=== PATIENT | female | born 1985 | race Caucasian/White ===

== ENCOUNTER 2019-06-28 13:17 | Emergency (ER) | payer OTHER ==
[2019-06-28 13:23] VITALS: BP 131/77
[2019-06-28] MEDS ORDERED: DEXAMETHASONE 10 MG/ML VIAL PO STA (13:56)
[2019-06-28] MEDS ORDERED: CHERRY SYRUP 10 ML UDC PO ONE (13:56)
--- NOTE | 2019-06-28 13:59 | ED Physician Documentation ---
PD HPI HEENT - Stated complaint Stated Complaint: LT EAR PX - Chief complaint Chief Complaint: Heent - History obtained from History obtained from: Patient - History of Present Illness Timing - onset: How many weeks ago (1) Timing - duration: Weeks (1) Timing - details: Gradual onset, Still present, Waxing and waning Location: Left ear Improves: Medication Worsens: Swalllowing Associated symptoms: No: Fever, Congestion, Rhinorrhea, Trismus, Unable to swallow, Swollen nodes, Facial swelling, Headache, Cough Similar symptoms before: Diagnosis (swimmers ear) Recently seen: Not recently seen - Additional information Additional information: Previously well 33-year-old female has developed some cracking and popping in her left ear. She is a swimmer and she has been swimming regularly and she felt that she had some external ear canal infection and she put some isopropyl alcohol and vinegar in it and this did not resolve her symptoms of popping and in her ear, especially if she opens her mouth or yawns. She has not had a cough she has not had fever. She does complain of some vaginal itching she has had yeast vaginitis previously. She has treated for this previously with Monistat has had partial resolution. Review of Systems Constitutional: denies: Fever Eyes: denies: Decreased vision Ears: reports: Ear pain, Tinnitus/ringing Nose: denies: Rhinorrhea / runny nose, Congestion Throat: denies: Sore throat Cardiac: denies: Chest pain / pressure Respiratory: denies: Dyspnea, Cough GI: denies: Vomiting PD PAST MEDICAL HISTORY - Past Medical History : Kidney stones - Past Surgical History Past Surgical History: Yes General: Cholecystectomy HEENT: Tonsil/Adenoidectomy - Present Medications Home Medications: Ambulatory Orders Medication Instructions Recorded Confirmed Etonogestrel/Ethinyl Estradiol 1 each VG 06/28/19 06/28/19 [Nuvaring Vaginal Ring] Fluconazole [Diflucan] 150 mg PO ONCE #1 tablet 06/28/19 Valacyclovir HCl [Valtrex] 1,000 mg PO DAILY 06/28/19 06/28/19 - Allergies Allergies/Adverse Reactions: Allergies Allergy/AdvReac Type Severity Reaction Status Date / Time No Known Drug Allergies Allergy Verified 06/28/19 13:23 - Social History Does the pt smoke?: No Smoking Status: Never smoker Does the pt drink ETOH?: Yes Does the pt have substance abuse?: No PD ED PE NORMAL - Vitals Vital signs reviewed: Yes (hypertensive mild ) - General General: Alert and oriented X 3, No acute distress, Well developed/nourished - HEENT HEENT: Atraumatic, PERRL, EOMI, Ears normal, Moist mucous membranes, Other (There is no inflamation to the canal or the TM and there is no pain to pull on the tragus or push on the pinna. There is inflamation in a line along the left tonsilar base. 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, No motor deficit, No sensory deficit, Normal speech Eye Opening: Spontaneous Motor: Obeys Commands Verbal: Oriented GCS Score: 15 - Psych Psych: Normal mood, Normal affect Results - Vitals Vitals: Vital Signs - 24 hr 06/28/19 13:21 Temperature 36.3 C L Heart Rate 82 Respiratory 18 Rate Blood Pressure 131/77 H O2 Saturation 99 Oxygen O2 Source Room air PD MEDICAL DECISION MAKING - ED course Complexity details: reviewed old records, considered differential, d/w patient ED course: 33-year-old female with popping in her ear has not been able to get relief of it she feels like there is still water in the ear and clearly there is no water in the canal and no evidence of inflammation or swimmer's ear. She does have eustachian tube dysfunction and I have discussed with the patient methods of treating it including using nasa jeromy available [id number] and we will provide a single dose of dexamethasone here today. She does complain of some yeast vaginitis incompletely treated with the Monistat and we will provide a prescription for Diflucan. Departure - Departure Disposition: 01 Home, Self Care Clinical Impression: Yeast vaginitis Eustachian tube disorder Qualifiers: Laterality: left Qualified Code(s): H69.92 - Unspecified Eustachian tube disorder, left ear Condition: Stable Instructions: ED Obstruction Eustachian Tube Ch, ED Vaginal Infec Fungal Lauren Follow-Up: DINA TIRADO DO [Primary Care Provider] - Prescriptions: Fluconazole [Diflucan] 150 mg PO ONCE #1 tablet
== END 2019-06-28 14:07 | disposition home or self-care (01) ==
LOC: ED 13:17
DX: H69.92 Unspecified Eustachian tube disorder, left ear (principal); B37.3 Candidiasis of vulva and vagina
CPT/HCPCS: 99282; 99284; A9270

== ENCOUNTER 2020-05-27 07:12 | Outpatient (CLI) | payer OTHER ==
[2020-05-27] MEDS ORDERED: GADOBUTROL 7.5 MMOL/7.5 ML VIAL ONE (07:51)
[2020-05-27] MEDS ORDERED: GADOBUTROL 7.5 MMOL/7.5 ML VIAL IVP ONE (09:05)
--- NOTE | 2020-05-27 09:59 | MRI Report ---
PROCEDURE: Brain W/WO INDICATIONS: PARESTHESIA OF SKIN CONTRAST: IV CONTRAST: Gadavist ml: 6 TECHNIQUE: Noncontrast axial T1 spin echo, axial T2 fast spin echo, sagittal and axial FLAIR, coronal T2 fast sp in echo, axial gradient echo, axial diffusion and ADC through the brain. After the administration of contrast, axial and coronal T1 spin echo with fat saturation through the brain. COMPARISON: None. FINDINGS: Image quality: Excellent. CSF spaces: Normal ventricular caliber and position. Patent basilar cisterns. No abnormal intra-axial fluid collection. Brain: No restricted diffusion to indicate recent ischemia. The major intracranial vascular flow-rel ated signal voids are maintained. No abnormal intracranial susceptibility. No brain parenchymal FLAIR signal abnormality. No abnormal intracranial enhancement. Midline structures are normal in configura tion. Skull and face: Calvarial marrow is normal in signal. Orbits appear normal. Sinuses: Sinuses and mastoids appear clear. IMPRESSION: Normal MRI of the brain. No findings of demyelinating disorder or other abnormality to e xplain the patient's symptoms. Reviewed by: Kwesi Phan MD on 05/27/2020 9:58 AM PST Approved by: Kwesi Phan MD on 05/27/2020 9:58 AM PST Station ID: [id number]
--- NOTE | 2020-05-27 10:01 | MRI Report ---
PROCEDURE: Cervical Spine W/WO INDICATIONS: PARESTHESIA OF SKIN CONTRAST: IV CONTRAST: Gadavist ml: 6 TECHNIQUE: Noncontrast sagittal T1 spin echo and T2 fast spin echo, sagittal STIR, sagittal PD fast spin echo, f oraminal oblique sagittal T2 fast spin echo, axial gradient echo or T2 fast spin echo through the cer vical spine. After the administration of contrast, sagittal and axial T1 spin echo with fat saturati on through the cervical spine. COMPARISON: None. FINDINGS: Image quality: Excellent. Alignment and curvature: Normal configuration of the craniocervical junction. Normal cervical spine v ertebral body height and alignment. Marrow: Marrow demonstrates normal overall signal. Spinal cord: Normal morphology and signal intensity of the cervical cord. There is no syrinx. No abno rmal cord parenchymal or intradural enhancement. No inferior cerebellar tonsillar ectopia. No spinal canal or neural foraminal stenosis at any level in the cervical spine. Regional soft tissues: Prevertebral and paraspinous soft tissues are within normal limits. IMPRESSION: Normal MRI of the cervical spine. No findings of demyelinating disorder. Reviewed by: Kwesi Phan MD on 05/27/2020 10:00 AM PST Approved by: Kwesi Phan MD on 05/27/2020 10:00 AM PST Station ID: [id number]
== END 2020-05-27 07:13 | disposition home or self-care (01) ==
LOC: DI 07:12
PROVIDERS: ATTEND Nurse Practitioner Family
DX: R20.2 Paresthesia of skin (principal)
CPT/HCPCS: 70553; 72156; A9585

== ENCOUNTER 2020-05-31 14:38 | Emergency (ER) | payer OTHER ==
--- NOTE | 2020-05-31 15:35 | ED Physician Documentation ---
History of Present Illness - Stated complaint Stated Complaint: COLD & NUMB ON RIGHT SIDE OF BODY - Chief complaint Chief Complaint: Neuro - History obtained from History obtained from: Patient - History of Present Illness Timing: How many weeks ago (3) Pain level max: 0 Pain level now: 0 - Additonal information Additional information: 34 year old female states R sided body numbness for the past 3 weeks. Patient states that it started in the right hand and has since spread up her arm to the back of her head and down to her right foot. It encompasses the entire right side of the body except the face. Does not have any issues with muscular weakness. No recent illnesses or travel. Had a normal brain MRI and cervical spine MRI 4 days ago. Has an appointment with her PCP in 2 days. She states that occasionally her right eye feels "sluggish". No fevers. No chills. No possibility of . She does take Valtrex. She is on NuvaRing for control. No neck or back pain. Does not use any IV drugs. Has had no loss of bowel or bladder control. Review of Systems Ten Systems: 10 systems reviewed and negative Constitutional: denies: Fever, Chills Ears: denies: Ear pain Nose: denies: Rhinorrhea / runny nose, Congestion Throat: denies: Sore throat Respiratory: denies: Cough GI: denies: Vomiting : denies: Dysuria, Hesitancy, Incontinent, Now EGA Skin: denies: Rash Musculoskeletal: denies: Neck pain, Back pain Neurologic: denies: Generalized weakness, Focal weakness, Confused, Altered mental status, Headache PD PAST MEDICAL HISTORY - Past Medical History Past Medical History: Yes : Kidney stones - Past Surgical History Past Surgical History: Yes General: Cholecystectomy HEENT: Tonsil/Adenoidectomy - Present Medications Home Medications: Ambulatory Orders Medication Instructions Recorded Confirmed Etonogestrel/Ethinyl Estradiol 1 each VG UD 06/28/19 05/31/20 [Nuvaring Vaginal Ring] Valacyclovir HCl [Valtrex] 1,000 mg PO DAILY 06/28/19 05/31/20 - Allergies Allergies/Adverse Reactions: Allergies Allergy/AdvReac Type Severity Reaction Status Date / Time No Known Drug Allergies Allergy Verified 05/31/20 15:09 - Social History Does the pt smoke?: No Smoking Status: Never smoker Does the pt drink ETOH?: Yes Does the pt have substance abuse?: No - POLST Patient has POLST: No PD ED PE NORMAL - Vitals Vital signs reviewed: Yes - General General: Alert and oriented X 3, No acute distress, Well developed/nourished - HEENT HEENT: PERRL, Moist mucous membranes - Neck Neck: Supple, no meningeal sign - Cardiac Cardiac: RRR, Strong equal pulses - Respiratory Respiratory: No respiratory distress, Clear bilaterally - Abdomen Abdomen: Soft, Non tender, Non distended - Derm Derm: Warm and dry - Neuro Neuro: Alert and oriented X 3, No motor deficit, Other (Diminished sensation over the R UE, R torso and R LE. O/w normal neuro exam. normal DTR patellar, ankle, bicep, tricep. No saddle anesthesia. ) - Psych Psych: Normal mood, Normal affect Results - Vitals Vitals: Vital Signs - 24 hr 05/31/20 05/31/20 14:58 16:43 Temperature 37.3 C 37.2 C Heart Rate 85 88 Respiratory 18 16 Rate Blood Pressure 139/92 H 128/88 H O2 Saturation 100 100 Oxygen O2 Source Room air - Labs Labs: Laboratory Tests 05/31/20 05/31/20 05/31/20 15:44 15:51 15:51 WBC 7.7 RBC 4.66 Hgb 14.6 Hct 43.4 MCV 93.1 MCH 31.3 H MCHC 33.6 RDW 13.0 Plt Count 234 MPV 10.0 Neut # (Auto) 4.5 Lymph # (Auto) 2.6 [place] # (Auto) 0.5 Eos # (Auto) 0.1 Baso # (Auto) 0.0 Absolute Nucleated RBC 0.00 Nucleated RBC % 0.0 ESR 1 Sodium Potassium Chloride Carbon Dioxide Anion Gap BUN Creatinine Estimated GFR (MDRD) Glucose Calcium Phosphorus Magnesium Total Bilirubin AST ALT Alkaline Phosphatase C-Reactive Protein Total Protein Albumin Globulin Albumin/Globulin Ratio Urine Color YELLOW Urine Clarity CLEAR Urine pH 6.5 Ur Specific [place] 1.010 Urine Protein NEGATIVE Urine Glucose (UA) NEGATIVE Urine Ketones NEGATIVE Urine Occult Blood NEGATIVE Urine Nitrite NEGATIVE Urine Bilirubin NEGATIVE Urine Urobilinogen 0.2 (NORMAL) Ur Leukocyte Esterase NEGATIVE Ur Microscopic Review NOT INDICATED Urine Culture Comments NOT INDICATED Urine HCG, Qual NEGATIVE 05/31/20 15:51 WBC RBC Hgb Hct MCV MCH MCHC RDW Plt Count MPV Neut # (Auto) Lymph # (Auto) [place] # (Auto) Eos # (Auto) Baso # (Auto) Absolute Nucleated RBC Nucleated RBC % ESR Sodium 137 Potassium 3.9 Chloride 102 Carbon Dioxide 28 Anion Gap 7.0 BUN 11 Creatinine 0.8 Estimated GFR (MDRD) 82 L Glucose 90 Calcium 9.3 Phosphorus 4.4 Magnesium 2.3 Total Bilirubin 0.4 AST 23 ALT 25 Alkaline Phosphatase 48 C-Reactive Protein < 1.0 Total Protein 7.3 Albumin 4.5 Globulin 2.8 Albumin/Globulin Ratio 1.6 Urine Color Urine Clarity Urine pH Ur Specific [place] Urine Protein Urine Glucose (UA) Urine Ketones Urine Occult Blood Urine Nitrite Urine Bilirubin Urine Urobilinogen Ur Leukocyte Esterase Ur Microscopic Review Urine Culture Comments Urine HCG, Qual PD MEDICAL DECISION MAKING - ED course Complexity details: reviewed old records, reviewed results, re-evaluated patient, considered differential, d/w patient, d/w outplacement consultant ED course: Patient with numbness on the right half of her body for the past 3 weeks. Unclear etiology. Normal brain MRI with and without contrast as well as cervical spine MRI with and without contrast 3 days ago. No significant lab abnormalities here. I did consult neurology and spoke with janessa Powell at [facility]. We reviewed the laboratory findings. He does not have any recommendations for any further blood testing at this point. He does recommend that she follow-up closely in clinic for further care. No muscular findings. No incontinence. Patient counseled regarding signs and symptoms for which I believe and urgent re-evaluation would be necessary. Patient with good understanding of and agreement to plan and is comfortable going home at this time This document was made in part using voice recognition software. While efforts are made to proofread this document, sound alike and grammatical errors may occur. Departure - Departure Disposition: 01 Home, Self Care Clinical Impression: Paresthesia Condition: Good Instructions: ED Paraesthesias Follow-Up: Enoc Vee MD [Physician No Access] - DINA TIRADO DO [Primary Care Provider] - Within 3 Days Comments: The cause of your symptoms is unclear today. When you see Dr. Tirado on Sunday, she can place the referral for you to see Dr. Patel of neurology at [facility]. Your laboratory testing is normal today including sed rate, CRP, blood counts, electrolytes and liver tests. Discharge Date/Time: 05/31/20 16:43
[2020-05-31 15:56] LABS: BILIRUBIN,URINE NEGATIVE (NEGATIVE); GLUCOSE, URINE (UA) NEGATIVE (NEGATIVE); KETONES,URINE (UA) NEGATIVE (NEGATIVE); LEUKOCYTE ESTERASE, URINE NEGATIVE (NEGATIVE); NITRITE,URINE NEGATIVE (NEGATIVE); OCCULT BLOOD,URINE NEGATIVE (NEGATIVE); PH,URINE 6.5 PH (5.0-7.5); PROTEIN,URINE NEGATIVE (NEGATIVE); UROBILINOGEN,URINE 0.2 (NORMAL) E.U./dL (NORMAL)
[2020-05-31 15:58] LABS: CLARITY,URINE CLEAR (CLEAR); HCG UR QUAL NEGATIVE
[2020-05-31 16:00] LABS: BASOPHILS % (AUTO) 0.3 %; EOSINOPHILS # (AUTO) 0.1 10^3/uL (0.0-0.7); HGB - HEMOGLOBIN 14.6 g/dL (12.0-16.0); LYMPHOCYTES # (AUTO) 2.6 10^3/uL (1.5-3.5); LYMPHOCYTES % (AUTO) 33.8 %; MEAN CORPUSCULAR HEMOGLOBIN 31.3 pg (27.0-31.0); MEAN CORPUSCULAR HGB CONC 33.6 g/dL (32.0-36.0); MEAN CORPUSCULAR VOLUME 93.1 fL (81.0-99.0); MONOCYTES # (AUTO) 0.5 10^3/uL (0.0-1.0); MONOCYTES % (AUTO) 6.1 %; NEUTROPHILS # (AUTO) 4.5 10^3/uL (1.5-6.6); NEUTROPHILS % (AUTO) 58.5 %; PLT - PLATELET COUNT 234 10^3/uL (130-450); RED BLOOD COUNT 4.66 10^6/uL (4.20-5.40); WHITE BLOOD COUNT 7.7 x10^3/uL (4.8-10.8)
[2020-05-31 16:18] LABS: ALBUMIN 4.5 g/dL (3.2-5.5); ALBUMIN/GLOBULIN RATIO 1.6 (1.0-2.2); ALKALINE PHOSPHATASE 48 IU/L (42-121); ALT ALANINE AMINOTRANSFERASE 25 IU/L (10-60); AST ASPARTATE AMINOTRANSFERASE 23 IU/L (10-42); BILIRUBIN,TOTAL 0.4 mg/dL (0.2-1.0); BUN - BLOOD UREA NITROGEN 11 mg/dL (6-20); CALCIUM 9.3 mg/dL (8.5-10.3); CARBON DIOXIDE - CO2 28 mmol/L (21-32); CHLORIDE 102 mmol/L (101-111); CREATININE 0.8 mg/dL (0.4-1.0); GLUCOSE 90 mg/dL (70-100); MAGNESIUM 2.3 mg/dL (1.7-2.8); PHOSPHORUS 4.4 mg/dL (2.5-4.6); SODIUM 137 mmol/L (135-145); TOTAL PROTEIN 7.3 g/dL (6.7-8.2)
[2020-05-31 16:22] LABS: CRP - C-REACTIVE PROTEIN < 1.0 mg/dL (0-1.0)
[2020-05-31 16:44] VITALS: BP 128/88
== END 2020-05-31 16:43 | disposition home or self-care (01) ==
LOC: ED 14:38
DX: R20.2 Paresthesia of skin (principal); R20.0 Anesthesia of skin
CPT/HCPCS: 36415; 80053; 81001; 81003; 81025; 83735; 84100; 85025; 85651; 86140; 87086; 99283; 99284